=== PATIENT | female | born 1995 | race Caucasian/White ===

== ENCOUNTER 2018-07-14 22:54 | Emergency (ER) | payer OTHER ==
[~2018-07-14] VITALS: Ht 157.5 cm; Wt 66.0 kg
[2018-07-15 01:24] VITALS: BP 120/71
== END 2018-07-15 01:25 | disposition home or self-care (01) ==
LOC: ER 22:54
DX: T20.10XA Burn of first degree of head, face, and neck, unspecified site, initial encounter (principal); X12.XXXA Contact with other hot fluids, initial encounter; Y93.89 Activity, other specified; Y92.69 Other specified industrial and construction area as the place of occurrence of the external cause; Y99.0 Civilian activity done for income or pay
CPT/HCPCS: 99281; 99284